=== PATIENT | male | born 1935 | race Caucasian/White ===

== ENCOUNTER 2017-10-16 17:06 | Inpatient (IN) ==
[2017-10-16] MEDS ORDERED: METOCLOPRAMIDE 10 MG/2 ML VIAL IV STA (18:16)
[2017-10-16] MEDS ORDERED: ONDANSETRON 4 MG/2 ML VIAL IV STA (18:16)
[2017-10-16] MEDS ORDERED: SODIUM CHLORIDE 0.9% 1,000 ML IV STA (18:18)
[2017-10-16] MEDS ORDERED: PANTOPRAZOLE 40 MG VIAL IV STA (18:18)
[2017-10-16] MEDS ORDERED: ACETAMINOPHEN 325 MG TABLET PO PRN (18:43)
[2017-10-16] MEDS ORDERED: ONDANSETRON 4 MG/2 ML VIAL IV PRN (18:43)
[2017-10-16] MEDS ORDERED: PANTOPRAZOLE 40 MG VIAL IV ONE (18:50)
[2017-10-16] MEDS ORDERED: METOCLOPRAMIDE 10 MG/2 ML VIAL ONE (18:50)
[2017-10-16 19:20] LABS: Basophils % 0.6 % (0.0-0.8); Eosinophils # 0.1 10*3/uL (0.0-0.87); Eosinophils % 1.8 % (0.00-10.9); Hematocrit 35.7 VOL% (42.0-52.0); Hemoglobin 11.5 GM/DL (14.0-18.0); Immature Granulocytes % 0.3 %; Immature Granulocytes Absolute 0.02 #; Lymphocytes # 1.8 10*3/uL (1.4-4.0); Lymphocytes % 24.6 % (21.2-54.2); Mean Corpuscular HGB Conc 32.2 GM/DL (32-36); Mean Corpuscular Hemoglobin 30 PG (27-34); Mean Corpuscular Volume 91.5 FL (87-102); Mean Platelet Volume 10.1 FL (9.6-12.0); Monocytes # 0.7 10*3/uL (0.11-0.8); Monocytes % 10.3 % (1.7-12.7); Neutrophils # 4.5 10*3/uL (1.4-7.4); Neutrophils % 62.4 % (38.7-73.9); Platelet Count 325 T/CUMM (130-400); White Blood Count 7.2 T/CUMM (4-12)
[2017-10-16 19:38] LABS: Alanine Aminotransferase 16 U/L (16-61); Albumin 3.9 G/DL (3.4-5.0); Alkaline Phosphatase 70 U/L (45-117); Amylase 76 U/L (25-115); Aspartate Amino Transferase 13 U/L (0-37); Bilirubin,Total < 0.39 MG/DL (0.2-1.0); Blood Urea Nitrogen 13 MG/DL (7-18); Glucose 90 MG/DL (74-106); Osmolality,Calculated 278.4 MOS/KG (273-304); Potassium 4.5 MMOL/L (3.5-5.1); Sodium 140 MMOL/L (136-145); Total Protein 7.5 G/DL (6.4-8.3)
[2017-10-16 19:39] LABS: INR 1.1; PT Patient Result 11.2 SECS; Partial Thromboplastin Time 29.4 SECS (0-40)
[2017-10-16] MEDS: SODIUM CHLORIDE 0.9% 1,000 ML IV SCH (20:40)
[2017-10-16] MEDS: hydrALAZINE 20 MG/1 ML VIAL IV SCH (20:49)
[2017-10-16] MEDS: MORPHINE 2 MG/1 ML SYRINGE IV PRN (20:50)
[2017-10-17] MEDS: MORPHINE 2 MG/1 ML SYRINGE IV PRN ×4 (01:26→20:56)
[2017-10-17] MEDS: hydrALAZINE 20 MG/1 ML VIAL IV SCH ×4 (04:13→20:56)
[2017-10-17] MEDS: PANTOPRAZOLE 40 MG VIAL IV SCH (08:39)
[2017-10-17] MEDS: SODIUM CHLORIDE 0.9% 1,000 ML IV SCH ×2 (12:52→18:38)
[2017-10-17] MEDS ORDERED: PROPOFOL 200 MG/20 ML VIAL IV ONE (15:48)
[2017-10-17] MEDS: ENOXAPARIN 40 MG/0.4 ML SYRINGE SUBCUT SCH (16:49)
[2017-10-18] MEDS: MORPHINE 2 MG/1 ML SYRINGE IV PRN ×2 (03:18→09:34)
[2017-10-18] MEDS: hydrALAZINE 20 MG/1 ML VIAL IV SCH ×2 (03:18→09:38)
[2017-10-18] MEDS: SODIUM CHLORIDE 0.9% 1,000 ML IV SCH ×2 (03:18→11:42)
[2017-10-18] MEDS: PANTOPRAZOLE 40 MG VIAL IV SCH (09:36)
[2017-10-18] MEDS: ENOXAPARIN 40 MG/0.4 ML SYRINGE SUBCUT SCH (09:40)
[2017-10-18 13:04] VITALS: BP 164/87
== END 2017-10-18 11:50 | DRG 392 ==
LOC: N.ED 17:06 → N.EDINP 18:43 → N.4E 19:21
PROVIDERS: ADMIT Internal Medicine Cardiovascular Disease; ATTEND Internal Medicine Cardiovascular Disease